=== PATIENT | female | born 1975 | race African-American/Black ===

== ENCOUNTER 2017-12-19 02:16 | Emergency (ER) | payer MEDICAID ==
--- NOTE | 2017-12-19 03:14 | RADIOLOGY REPORT (SQ) ---
EXAM DESCRIPTION: XR HAND 3 OR MORE VIEWS CLINICAL HISTORY: 42 years Female, DEFORMITY COMPARISON: None. TECHNIQUE/LIMITATION: No Limitation. FINDINGS: Posterior dislocation of the proximal interphalangeal joint of the right fifth finger. IMPRESSION: Right fifth PIP joint dislocation.
[2017-12-19] MEDS ORDERED: LIDOCAINE 2% INJ (20 MG/ML) 20 ML MDV INJ ONE (03:58)
[2017-12-19] MEDS ORDERED: BUPIVACAINE HCL 0.5 % INJ/PF 30 ML SDV INJ ONE ×2 (03:59→04:23)
[2017-12-19] MEDS ORDERED: LIDOCAINE 1% INJ (10 MG/ML) 10 ML MDV INJ ONE (04:11)
[2017-12-19] MEDS ORDERED: LIDOCAINE 1% INJ-PF (10 MG/ML) 30 ML SDV ONE (04:14)
--- NOTE | 2017-12-19 05:54 | RADIOLOGY REPORT (SQ) ---
EXAM DESCRIPTION: XR HAND 3 OR MORE VIEWS CLINICAL HISTORY: 42 years Female, post reduction 5th digit COMPARISON: None. Findings: Bones, joints, and soft tissues of the XR RIGHT HAND 3 VIEWS appear intact. Interval reduction near-anatomic alignment of the right fifth proximal interphalangeal joint. IMPRESSION: Interval reduction near-anatomic alignment of the right fifth proximal interphalangeal joint.
--- NOTE | 2017-12-19 06:01 | ER Document Report ---
ED Hand/Wrist Injury - General Chief Complaint: Finger Injury Stated Complaint: FINGER INJURY Time Seen by Provider: 12/19/17 03:24 Mode of Arrival: Ambulatory Information source: Patient Notes: 42-year-old female patient who comes to the emergency department complaint of pain and swelling to her right fifth digit. Patient reports that she tripped over a car seat and fell injuring her finger. There is an obvious dislocation. Patient denies any other complaints. Patient denies any other past medical history. - Related Data Allergies/Adverse Reactions: No Known Allergies Allergy (Unverified 12/19/17 02:19) Past Medical History - General Information source: Patient - Social History Smoking Status: Never Smoker Cigarette use (# per day): No Chew tobacco use (# tins/day): No Smoking Education Provided: No Frequency of alcohol use: None Drug Abuse: None Family History: Reviewed & Not Pertinent Patient has suicidal ideation: No Patient has homicidal ideation: No Renal/ Medical History: Denies: Hx Peritoneal Dialysis Review of Systems - Review of Systems Constitutional: No symptoms reported EENT: No symptoms reported Cardiovascular: No symptoms reported Respiratory: No symptoms reported Gastrointestinal: No symptoms reported Genitourinary: No symptoms reported Female Genitourinary: No symptoms reported Musculoskeletal: See HPI Skin: No symptoms reported Hematologic/Lymphatic: No symptoms reported Neurological/Psychological: No symptoms reported Physical Exam - Vital signs Vitals: Temp Pulse Resp BP Pulse Ox 97.6 F 73 14 129/73 H 96 12/19/17 02:20 12/19/17 02:20 12/19/17 02:20 12/19/17 02:20 12/19/17 02:20 - Notes Notes: PHYSICAL EXAMINATION: GENERAL: Well-appearing, well-nourished and in no acute distress. LUNGS: Breath sounds clear to auscultation bilaterally and equal. No wheezes rales or rhonchi. HEART: Regular rate and rhythm without murmurs Musculoskeletal: Dislocation to right 5th digit with moderate swelling. Normal range of motion, no pitting or edema. No cyanosis. NEUROLOGICAL: Cranial nerves grossly intact. Normal speech, normal gait. Normal sensory, motor exams PSYCH: Normal mood, normal affect. SKIN: Warm, Dry, normal turgor, no rashes or lesions noted. Course - Re-evaluation Re-evalutation: Otherwise healthy 42-year-old female with proximal inter-phalangeal joint dislocation to the right fifth digit after mechanical fall. Local anesthesia given via digital block with lidocaine and Marcaine. Repeat x-ray shows appropriate alignment with no dislocation. Finger splint applied and patient will follow-up with orthopedics for a follow-up. - Vital Signs Vital signs: Temp Pulse Resp BP Pulse Ox 97.7 F 62 16 116/85 99 12/19/17 06:16 12/19/17 06:16 12/19/17 06:16 12/19/17 06:16 12/19/17 06:16 Procedures - Immobilization right 5th digit Pre-Proc Neuro Vasc Exam: Normal Immobilizer type: Finger splint (Static) Performed by: PCT Post-Proc Neuro Vasc Exam: Normal Alignment checked and good: Yes - Joint Reduction/Fracture Care left 5th digit Consent obtained: No Pre-procedure NV exam: Yes Fracture: Other - no fracture on xray Post-procedure NV exam: Yes Post-reduction x-ray: Joint reduced, No fracture seen Discharge - Discharge Clinical Impression: Dislocated finger Qualifiers: Encounter type: initial encounter Qualified Code(s): S63.259A - Unspecified dislocation of unspecified finger, initial encounter Condition: Stable Disposition: HOME, SELF-CARE Additional Instructions: Dislocation You have suffered a dislocation of your finger. It has been reduced (put back in place). It will take time for the tissues around the joint to heal. The joint will be immobilized at first. If possible, elevate the injured area and apply ice packs. After healing is underway, the joint will require [id number] and strengthening exercises. The follow-up care is important in avoiding residual problems following your dislocation. If you note any numbness, muscle weakness, or severe swelling in the affected area, call the doctor or return for re-evaluation at once. Take an over the counter anti-inflammatory to pain and swelling. Please call Dr. Ashford (Orthopaedic) Wednesday for a follow up. Referrals: EDGARD ASHFORD, DO [ACTIVE STAFF] - Follow up as needed
[2017-12-19 06:19] VITALS: BP 116/85
== END 2017-12-19 06:20 | disposition home or self-care (01) ==
LOC: ER 02:16
PROC: 0RSWXZZ Reposition Right Finger Phalangeal Joint, External Approach (ICD-10-PCS; principal; 2017-12-19)
DX: S63.259A Unspecified dislocation of unspecified finger, initial encounter (principal); W01.0XXA Fall on same level from slipping, tripping and stumbling without subsequent striking against object, initial encounter
CPT/HCPCS: 99283; J3490